=== PATIENT | female | born 1985 | race Caucasian/White ===

== ENCOUNTER 2017-11-01 08:00 | Outpatient (CLI) | payer OTHER | END 2017-11-01 08:01 | disposition home or self-care (01) | LOC: LAB.R 08:00 | PROVIDERS: ATTEND Obstetrics & Gynecology | DX: Z36.9 Encounter for antenatal screening, unspecified (principal); Z11.3 Encounter for screening for infections with a predominantly sexual mode of transmission | CPT/HCPCS: 87491; 87591 ==

== ENCOUNTER 2017-11-17 12:47 | Outpatient (CLI) | payer OTHER ==
--- NOTE | 2017-11-21 14:55 | Ultrasound Report ---
OB ULTRASOUND: 11/17/2017 CLINICAL INDICATION: Dating. TECHNIQUE: Real-time scanning was performed with call center representative static images obtained. LAST MENSTRUAL PERIOD 08/09/2017 Clinical Age 14 weeks 2 days US Age 14 weeks 0 days EFW [place] -- EFW% [place] -- Heart Rate 164 bpm EDC 05/16/2018 US EDC 05/18/2018 BPD [place] -- HC [place] -- AC [place] -- FL [place] -- Presentation variable Placental Location posterior Cervical Length 5.36 cm Amniotic Fluid subjectively normal; MVP 3.7 cm FINDINGS There is a single viable intrauterine gestation, in variable position. The placenta is posterior, without evidence of previa. heart rate is 164 BPM. Amniotic fluid volume is subjectively normal, with a deepest pocket of 3.7 cm. By size, the fetus measures 14 weeks 0 days (14 weeks 2 days by LMP). No free fluid or adnexal lesion is appreciated. IMPRESSION: SINGLE VIABLE INTRAUTERINE GESTATION, WITH SIZE IN KEEPING WITH LMP DATING. TD: 11/17/2017 18:58 [email or web address]
== END 2017-11-17 12:48 | disposition home or self-care (01) ==
LOC: DI 12:47
PROVIDERS: ATTEND Obstetrics & Gynecology
DX: Z36.9 Encounter for antenatal screening, unspecified (principal)
CPT/HCPCS: 76805

== ENCOUNTER 2017-11-28 14:58 | Outpatient (CLI) | payer OTHER | END 2017-11-28 14:59 | disposition home or self-care (01) | LOC: LAB 14:58 | PROVIDERS: ATTEND Obstetrics & Gynecology | DX: Z13.79 Encounter for other screening for genetic and chromosomal anomalies (principal) | CPT/HCPCS: 36415; 81599; 82105; 82677; 84702; 86336 ==